=== PATIENT | female | born 1965 | race African-American/Black ===

== ENCOUNTER 2019-06-30 10:13 | Emergency (ER) | payer OTHER, SELFPAY ==
[2019-06-30 10:33] VITALS: BP 186/90; PULSE 92; RESP 16; TEMP 36.9; O2SAT 99
--- NOTE | 2019-06-30 10:34 | ED.GENADULT ---
HPI - General Adult General Chief complaint: Skin/Abscess/Foreign Body Stated complaint: Swelling/pain and rash rt lower extremity Source: patient and RN notes reviewed Mode of arrival: ambulatory Limitations: no limitations History of Present Illness HPI narrative: This is a 54 years of female presented office for evaluation of skin lesion on her left extremity. Symptoms began with tingling sensation on her right leg on Tuesday and then on Tuesday she noticed the rash.Rash has spread from her right lower leg to her upper thigh. Rash is tingling, and painful.Pain is worse last night that she could not get any sleep.She is otherwise feeling well. Denies sick contact. Admits to history of chickenpox, denies history of shingles. She does not have a primary care doctor.No treatment prior to arrival. Related Data Allergies Allergy/AdvReac Type Severity Reaction Status Date / Time Sulfa (Sulfonamide Allergy Swelling Verified 06/30/19 10:43 Antibiotics) Review of Systems Review of Systems: Narrative: CONSTITUTIONAL: Denies fever or feeling ill ENT: Denies congestion CARDIOVASCULAR: Denies chest pain RESPIRATORY: Denies cough GASTROINTESTINAL: Denies abdominal pain, nausea, vomiting, diarrhea. GENITOURINARY: Denies urinary symptoms or discharge SKIN: Denies skin trauma/cut prior to lesions MUSCULOSKELETAL: Denies acute back pain, joint pain NEUROLOGIC: Denies lightheaded/dizziness PMFSH Social History Social History Gender identity (if verbalized by the patient): Female Comments At time of signature, I agree with nursing past medical, surgical, social and family history. There is no relevant family history pertinent to the presenting complaint. Exam Narrative: Exam Narrative: GENERAL: This is a well-nourished, well-developed patient, in no apparent distress. NECK: Neck supple, non-tender without lymphadenopathy, masses or thyromegaly. CARDIOVASCULAR: Regular rate and rhythm without murmurs, gallops, or rubs. RESPIRATORY: Clear to auscultation. Breath sounds equal bilaterally. No wheezes, rales, or rhonchi. GASTROINTESTINAL: Abdomen soft, non-tender, nondistended. Bowel sounds are active. No hepato-splenomegaly, or palpable masses. No guarding. SKIN: scatter, group, macular-erythema, edematous lesion noted a long dermatone L4-L5; no secondary cellulitis or warmth to touch. No lymphandenitis. EXTREMITIES: ROM without obvious swelling/deformity NEURO: awake, alert, and oriented to person, place and time. There were no obvious focal neurologic abnormalities. Steady gait Dickens Coma Scale Eye Opening: Spontaneous 4 Dickens Coma Scale Motor: Obeys Commands 6 Linh Coma Scale Verbal: Oriented 5 Course Vital Signs Vital signs: Vital Signs Temperature 98.4 F 06/30/19 10:33 Pulse Rate 92 06/30/19 10:33 Respiratory Rate 16 06/30/19 10:33 Blood Pressure 186/90 H 06/30/19 10:33 Pulse Oximetry 99 06/30/19 10:33 Temperature 98.4 F 06/30/19 10:33 Pulse Rate 92 06/30/19 10:33 Respiratory Rate 16 06/30/19 10:33 Blood Pressure 186/90 H 06/30/19 10:33 Pulse Oximetry 99 06/30/19 10:33 Medical Decision Making MDM Narrative Medical decision making narrative: The side effects and purposes of the medication explained to the patient; she verbalizes understanding. Potential complications including secondary bacterial infection and postherpetic neuralgia have also explained. Discharge instructions reviewed with patient, as well as provided in writing per nursing staff. The instructions also include specific and strict return/GO TO THE ER as well as f/u information. All questions have been answered, and the patient deny any further questions with discharge and discharge plan. Differential Diagnosis Differential Diagnosis: Contact/allergic dermatitis, atopic dermatitis, psoriasis, eczema, cellulitis, erythema multiforme, viral exanthem Vi
== END 2019-06-30 10:55 | disposition home or self-care (01) ==
PROVIDERS: Emergency Provider Nurse Practitioner
DX: B02.9 Zoster without complications (principal); R03.0 Elevated blood-pressure reading, without diagnosis of hypertension
CPT/HCPCS: 99203; G0463

== ENCOUNTER 2022-09-18 10:05 | Emergency (ER) | payer OTHER, SELFPAY ==
[2022-09-18 10:17] VITALS: BP 135/79; PULSE 66; RESP 16; TEMP 35.9; O2SAT 98
--- NOTE | 2022-09-18 10:28 | ED.SKABFB ---
HPI - Skin/Abscess/Foreign Bdy General Chief complaint: Skin/Abscess/Foreign Body Stated complaint: rash Time Seen by Provider: 09/18/22 10:28 Source: patient Mode of arrival: ambulatory Limitations: no limitations History of Present Illness HPI narrative: Patient is a 57-year-old female that presents 3 wounds to the left forearm. Patient states she noticed the 1st 1 yesterday while at work, with itching. By the end of the day she had another wound right next to the 1st 1 and 1 under her [employer] watch. Patient denies any activities outside where she could have been, denies any changes in detergents lotions or soaps. Reports history of shingles to left leg. Has been using witch Natty for itching with mild to no relief. Denies any draining from wounds Related Data Home Medications Medication Instructions Recorded Confirmed amlodipine 5 mg tablet mg 09/18/22 aripiprazole 10 mg tablet mg 09/18/22 estradiol 0.5 mg tablet mg 09/18/22 fluticasone propionate 50 intranasal 09/18/22 mcg/actuation nasal spray,suspension meloxicam 15 mg tablet mg 09/18/22 metformin 500 mg tablet,extended mg PO 09/18/22 release 24 hr montelukast 10 mg tablet mg 09/18/22 sertraline 100 mg tablet mg 09/18/22 Allergies Allergy/AdvReac Type Severity Reaction Status Date / Time Sulfa (Sulfonamide Allergy Swelling Verified 09/18/22 10:18 Antibiotics) Review of Systems Review of Systems: All systems reviewed & are unremarkable except as noted in HPI and below Constitutional: Constitutional: Denies body ache(s), Denies fever(s), Denies headache(s), Denies malaise and Denies weakness Eyes: Eyes: Denies loss of vision ENT: Denies otalgia, Denies headache(s), Denies nasal discharge, Denies sinus pain and Denies sore throat Cardiovascular: Cardiovascular: Denies chest pain, Denies irregular heart rhythm and Denies dyspnea Respiratory: Respiratory: Denies dyspnea Gastrointestinal: Gastrointestinal: Denies abdominal pain, Denies melena, Denies hematochezia, Denies diarrhea, Denies nausea and Denies vomiting Musculoskeletal: Musculoskeletal: Denies back pain, Denies myalgias and Denies arthralgias Integumentary/Breasts: Skin/Breast: Reports pruritus and Reports rash Neurologic: Denies headache(s), Denies loss of vision and Denies weakness Psychiatric: Psychiatric: Reports no additional psychiatric complaints PMFSH Social History Social History Gender identity (if verbalized by the patient): Female Comments At time of signature, agree with nursing past medical, surgical, social and family history. There is no relevant family history pertinent to the presenting complaint. Exam Const: General: cooperative, healthy appearing, comfortable, no acute distress and well nourished Nutritional Appearance: well nourished Orientation/consciousness: patient oriented x3 Limitations: no limitations HENMT: Head: normal to inspection, normocephalic and atraumatic Ears: external ears normal Face/Nose/Sinus: Normal external nose present, normal facial exam and face symmetric Face and sinus: normal facial exam and face symmetric Mouth: Yes lip normal Eyes: General: appearance normal, both eyes and all related structures Alignment and Position: alignment normal and position normal Periorbital: periorbital findings normal Eyelids: eyelids normal Pupils: Equal, round and reactive pupils present EOM: EOMs intact bilaterally Neck: Neck: normal visual inspection and full ROM Chest: Chest palpation & inspection: normal inspection of the chest Resp: Effort & Inspection: normal respiratory effort and able to speak in complete sentences Auscultation: clear to auscultation bilaterally Cardio: Rate: regular rate Rhythm: regular rhythm Heart sounds: S1 normal heart sound present and S2 normal heart sound present GI: Inspection: normal to inspection Skin: General skin exam: normal
== END 2022-09-18 11:00 | disposition home or self-care (01) ==
PROVIDERS: Emergency Provider Nurse Practitioner Family
DX: L03.114 Cellulitis of left upper limb (principal); I10 Essential (primary) hypertension; R73.03 Prediabetes
CPT/HCPCS: 99213; G0463